=== PATIENT | female | born 1985 | race American Indian/Alaskan Native ===

== ENCOUNTER 2021-03-26 11:36 | Outpatient (CLI) | payer OTHER ==
[2021-03-26 12:32] VITALS: BP 102/69
[2021-03-26] MEDS ORDERED: LACTATED RINGERS 500 ML IV ONE (13:49)
[2021-03-26] MEDS ORDERED: BUTALB/ACETAMINOPHEN/CAFFEINE TAB PO PRN (13:55)
[2021-03-26 14:27] LABS: Hemoglobin 9.4 gm/dl (10.1-14.3); Mean Corpuscular HGB Conc 34 % (30-34); Mean Corpuscular Volume 98 fl (79-97); Platelet Count 230 K/mm3 (140-440); Red Blood Count 2.87 M/mm3 (3.65-5.03); Red Cell Distribution Width 12.8 % (13.2-15.2)
[2021-03-26 14:50] LABS: Bilirubin,Urine NEG (Negative); Blood,Urine NEG (Negative); Color,Urine Amber (Yellow); Mucus,Urine 3+ /HPF
[2021-03-26 14:53] LABS: Uric Acid 3.6 mg/dL (3.5-7.6)
[2021-03-26] MEDS ORDERED: LACTATED RINGERS 1,000 ML IV ONE (15:20)
[2021-03-26 15:24] LABS: Alanine Aminotransferase < 5 units/L (7-56)
[2021-03-26] MEDS ORDERED: LACTATED RINGERS 1,000 ML IV SCH (15:30)
== END 2021-03-26 19:11 | disposition home or self-care (01) ==
LOC: TRG 11:36 → APU 11:38 → TRG 19:11
PROVIDERS: ATTEND Obstetrics & Gynecology
DX: O99.353 Diseases of the nervous system complicating pregnancy, third trimester (principal); G43.909 Migraine, unspecified, not intractable, without status migrainosus; Z3A.33 33 weeks gestation of pregnancy; Z79.899 Other long term (current) drug therapy
CPT/HCPCS: 36415; 59025; 81001; 82565; 83615; 84450; 84460; 84550; 85027; 87086; 96360; 96361; J7120